=== PATIENT | female | born 1995 | race Hispanic/Latino ===

== ENCOUNTER → 2019-09-18 10:18 | Outpatient (CLI) | payer SELFPAY ==
--- NOTE | ~2019-09-18 | US_ITS ---
EXAMINATION: US OB follow up DATE: 09/18/2019 11:03 INDICATION: Routine care, second trimester TECHNIQUE: Real-time ultrasound of the pelvis was performed. The interpreting radiologist was not pre sent for the study. COMPARISON: None. FINDINGS: There is a single living fetus in vertex presentation. The placenta is anterior. card iac activity and movement are noted. heart rate is 142 beats per minute (bpm). The amniot ic fluid index is 12.8 cm which is normal. The following biometric data were obtained: Biparietal diameter (BPD): 7.7 cm; head circumference (HC): 28.9 cm; abdominal circumference (AC): 25 .3 cm; femur length (FL): 5.6 cm. These measurements are concordant. Estimated weight is 1471 g +/- 220 g, which correlates with the 80th percentile when 12/06/2019 i s used as estimated date of delivery. As single measurements, these parameters are each equal to the following estimated gestational ages w ith ranges of +/- 2 standard deviations: BPD: 31 weeks 2 days ( 28 weeks 1 days - 34 weeks 2 days). HC: 31 weeks 6 days ( 29 weeks 0 days - 34 weeks 6 days). AC: 29 weeks 4 days ( 27 weeks 2 days - 31 weeks 5 days). FL: 29 weeks 4 days ( 27 weeks 3 days - 31 weeks 4 days). estimated gestational age based solely on measurements from this exam is 30 weeks 4 days +/- 2 weeks 1 days. IMPRESSION: 1. Single living fetus in vertex presentation. 2. Normal amniotic fluid index. 3. Estimated weight is 1471 g +/- 220 g, which correlates with the 80th percentile when 0 is used as estimated date of delivery. Reviewed, dictated and finalized at location A. IMPRESSION: 1. Single living fetus in vertex presentation. 2. Normal amniotic fluid index. 3. Estimated weight is 1471 g +/- 220 g, which correlates with the 80th p ercentile when 12/06/2019 is used as estimated date of delivery.
== END ==
PROVIDERS: Visit Provider Physician Assistant
DX: Z34.93 Encounter for supervision of normal pregnancy, unspecified, third trimester (principal); Z3A.30 30 weeks gestation of pregnancy
CPT/HCPCS: 76816

== ENCOUNTER 2019-10-23 01:15 | Inpatient (IN) | payer MEDICAID, SELFPAY ==
[2019-10-23] VITALS (31 sets, daily range): BP systolic 92–115; BP diastolic 51–86; PULSE 60–135; RESP 16–18; TEMP 36.4–37; O2SAT 99; BMI 21.7
--- NOTE | 2019-10-23 01:38 | LDADM ---
This patient, Rojelio Vázquez, was admitted to Labor/Delivery/Recovery 104 on 10/23/19 at 01:38. Plans for labor, pain management and were discussed with patient. Patient/family oriented to hospital policies and general routines including ID bracelet, bed and alarms, visiting hours, pain management, procedures, bathroom and other care routines, personal items, smoking policy, room service/diet and guest tray routines, security routines, and visiting hours. Patient/Family are encouraged to report perceived risks to care and to ask questions if they do not understand what they are told or what they should do. See OBIX for further documentation.
[2019-10-23 02:07] LABS: Basophils Percent Auto 0.2 % (0.2-1.2); Eosinophils Absolute Auto 0.1 K/mm3 (0-0.3); Eosinophils Percent Auto 0.9 % (0-4.4); Hemoglobin 11.5 g/dL (12.0-15.0); Immature Granulocyte Absolute 0.11 K/mm3 (0.00-0.031); Immature Granulocyte Percent A 0.9 % (0-0.5); Lymphocytes Absolute Auto 2.92 K/mm3 (0.9-3.2); Lymphocytes Percent Auto 22.6 % (18.3-44.2); Mean Corpuscular HGB Conc 33.8 g/dl (32-36); Mean Corpuscular Hemoglobin 27.7 pg (26-34); Mean Corpuscular Volume 81.9 fl (80-100); Mean Platelet Volume 9.3 fl (7.4-10.4); Monocytes Absolute Auto 1.1 K/mm3 (0.1-0.6); Monocytes Percent Auto 8.1 % (2.6-8.5); Neutrophils Absolute Auto 8.7 K/mm3 (1.3-6.7); Neutrophils Percent Auto 67.3 % (45.5-73.1); Platelet Count Result 170 k/mm3 (150-375); Red Blood Count 4.15 M/mm3 (4.2-5.4); Red Cell Distribution Width 12.7 % (11.5-14.5); White Blood Count 12.9 K/mm3 (4.5-10.0)
[2019-10-23] MEDS: AMPICILLIN 2 GM/NS 100 ML 2 GM/100 ML BAG IVPB (02:09)
[2019-10-23] MEDS: LACTATED RINGERS 1,000 ML 125 ML IV CONT (02:09)
--- NOTE | 2019-10-23 02:12 | WPDOBADMIT ---
Obstetrics - Admit Note Admission Note: record reviewed. No pertinent additions to the history and/or any subsequent changes in the physical findings that are not consistent with the expected course of the were found. walk-in. pt receiving care with Dr. Ayala. Pt is a at 35 weeks in active labor, membranes intact. anticipate vaginal delivery Additions to the history and/or subsequent changes in the physical findings follow. None.
[2019-10-23 02:51] LABS: Hepatitis B Surface Antigen Negative (Negative)
[2019-10-23 03:00] LABS: HIV 1/2 Ab P24 Ag Result Negative (Negative)
[2019-10-23 03:51] LABS: Rubella IgG Antibody 30.9 IU/ML
[2019-10-23] MEDS: AMPICILLIN 1 GM/NS 50 ML 1 GM/50 ML BAG IVPB (06:21)
--- NOTE | 2019-10-23 07:50 | WPDOBADMIT ---
Obstetrics - Admit Note Admission Note: 24 y/o @ 35 weeks gestation who presented in active labor. She is a walk in patient. She had care with Dr Ayala however [facility] is not delivering at this time and Dr Ayala does not have priveleges here. Pt denies any medica problems or problems with this . Please see h&p. Contractions regular FHR category 1 Cervix 8cm/100/-1. AROM performed. Small amount of clear odorless fluid Declines epidural Anticipate record reviewed. No pertinent additions to the history and/or any subsequent changes in the physical findings that are not consistent with the expected course of the were found. Additions to the history and/or subsequent changes in the physical findings follow. None.
--- NOTE | 2019-10-23 07:55 | PM.IMHP ---
H&P: HPI History of Present Illness Chief complaint: contractions Narrative: Rojelio Vázquez is a 24 year old female Review of Systems Review of Systems: All systems reviewed & are unremarkable except as noted in HPI and below PMFSH Social History Social History Smoking status: Never smoker Substance use: never Gender identity (if verbalized by the patient): Female Spiritual care concerns: No Meds Home Medications and Allergies Home Medications Medication Instructions Recorded Confirmed Type PNV cmb#95-ferrous fumarate-FA 1 tablet PO DAILY 10/23/19 10/23/19 History [] Allergies Allergy/AdvReac Type Severity Reaction Status Date / Time No Known Allergies Allergy Verified 10/23/19 02:44 Vital Signs Vital Signs - 24 hr 10/23/19 01:34 10/23/19 02:11 10/23/19 02:16 Temperature 97.9 F Pulse Rate 76 79 Blood Pressure 112/67 94/64 L 10/23/19 02:31 10/23/19 03:01 10/23/19 03:31 Temperature Pulse Rate 65 67 Blood Pressure 108/69 111/69 108/66 10/23/19 04:00 10/23/19 04:01 10/23/19 04:31 Temperature 98.6 F Pulse Rate 71 83 Blood Pressure 101/69 93/55 L 10/23/19 05:02 10/23/19 05:31 10/23/19 05:59 Temperature 97.9 F Pulse Rate 76 77 Blood Pressure 93/56 L 95/63 L 10/23/19 06:01 10/23/19 06:23 10/23/19 06:31 Temperature 98.6 F Pulse Rate 95 Blood Pressure 96/79 L 106/86 Exam Const: General: no acute distress Neck: Neck: supple and no JVD Resp: Auscultation: clear to auscultation bilaterally Cardio: Rate: regular rate GI: Other: Gravid Skin: General skin exam: normal color Neuro: General: gait normal Speech: normal speech Motor exam (neuro): Normal motor muscle tone present throughout Extrem: General: normal to inspection Psych: Mental Status: mental status grossly normal H&P: Results Labs Labs: Short CBC 10/23/19 Range/Units 01:44 WBC 12.9 H (4.5-10.0) K/mm3 Hgb 11.5 L (12.0-15.0) g/dL Hct 34.0 L (37.0-47.0) % Plt Count 170 (150-375) k/mm3 Assessment and Plan Assessment and plan (1) Active labor: Status: Acute Assessment and Plan: 35weeks in spontaneous labor GBS prophylaxis Obtain records Anticipate
[2019-10-23] MEDS: OXYTOCIN 30 UNITS/NS 500 ML 30 UNITS/500 ML BAG 999 UNITS IV CONT (09:41)
--- NOTE | 2019-10-23 09:59 | P.PCNOB_ITS ---
OB - Delivery Note Procedure Delivery date: 10/23/19 events: Labor < 37 Weeks Intrapartal events: None Induction method: none Delivery monitor: external FHT and external uterine Route of delivery: Laceration description: Perineal - 1st Degree Delivery repair: vicryl Specimen: Yes Estimated blood loss (mL): 160 Anesthesia type: Epidural [place] [facility] Date of : 10/23/19 Time of : 09:37 Weeks of gestation at delivery: 35 gender: Male presentation: vertex position: Left Occiput Anterior Placenta delivery description: Spontaneous cord vessel description: 3 Vessels
[2019-10-23] MEDS: OXYTOCIN 30 UNITS/NS 500 ML 30 UNITS/500 ML BAG 125 UNITS IV CONT (10:15)
[2019-10-23 10:50] LABS: Amphetamine Screen Urine Negative (Negative); Barbiturate Screen Urine Negative (Negative); Benzodiazepines Screen Urine Negative (Negative); Cannabinoid Screen Urine Negative (Negative); Cocaine Screen Urine Negative (Negative); Methadone Screen Urine Negative (Negative); Opiate Screen Urine Negative (Negative); Phencyclidine Screen Urine Negative (Negative)
[2019-10-23 11:25] LABS: Rapid Plasma Reagin Non-Reactive (NonReactive)
[2019-10-23] MEDS: BENZOCAINE 20% AER SPR (*SP) 56 GM CAN 1 SPRAY TOPICAL (12:31)
[2019-10-23] MEDS: WITCH HAZEL 40 PADS 1 PAD TOPICAL (12:31)
--- NOTE | 2019-10-23 15:25 | PC.NURSE ---
Breast pump provided due to transfer. Instructions given on breast pump care and usage, pumping schedule, nipple care, and collection and storage of breast milk. Encouraged [id number], breast massage and manual expression to stimulate supply. Assessed patient for correct flange size, placement and draw. Patient verbalizes and demonstrates understanding of instructions.
[2019-10-24 05:43] LABS: Hematocrit 30.4 % (37.0-47.0)
--- NOTE | 2019-10-24 07:34 | P.PNOB_ITS ---
OB - PN: Subj Subjective Date/time seen: 10/24/19 07:34 Patient comments: no complaints baby status: doing well [place] feeding status: pumping and storing OB - PN: Obj Data Labs CBC & Chem 7: 10/24/19 04:51 Labs: Laboratory Results - last 24 hr 10/23/19 10/23/19 10/24/19 01:44 09:15 04:51 Hgb 10.0 L Hct 30.4 L Urine Opiates Screen Negative Urine Methadone Screen Negative Ur Barbiturates Screen Negative Ur Phencyclidine Scrn Negative Ur Amphetamine Screen Negative U Benzodiazepines Scrn Negative Urine Cocaine Screen Negative U Cannabinoids Screen Negative RPR Non-reactive OB - PN A/P Plan day: 1 Plan: routine care Time Spent With Patient Time: Total time spent is greater than 50% in coordination of care (as documented) at patient's floor/unit and/or counseling patient: Review of Systems Review of Systems: All systems reviewed & are unremarkable except as noted in HPI and below Constitutional: Constitutional: Reports as per HPI Cardiovascular: Cardiovascular: Reports as per HPI Respiratory: Respiratory: Reports as per HPI Exam 2 Const: General: comfortable
[2019-10-24 07:35] VITALS: BP 96/60; PULSE 68; RESP 18; TEMP 37.6; O2SAT 99
[2019-10-24] MEDS: MULTIVIT/MIN/PREN/FOL AC/IRON TABLET 1 TAB PO (08:45)
--- NOTE | 2019-10-24 09:00 | PC.NURSE ---
Mother continues to pump regularly without difficulties or discomfort. Reviewed engorgement/relief. Reviewed regular medications mother is taking. Information provided per Laurie. Reviewed community resources on the [employer] website and in the Mom/Baby guide. Information on outpatient services provided. Mother has no further questions at this time.
[2019-10-24] MEDS: IBUPROFEN 600 MG TABLET PO (10:25)
--- NOTE | 2019-10-24 10:29 | PC.NURSE ---
Education: Mom and Baby Guide Given to: Mother Follow-Up: Call your delivering provider's office for an appointment to be seen in: Call for appointment Mom and baby should come to the [facility] for the follow-up appointment. Appointment Date/Time: October 27, 2019 at 10:00 am What to expect at your follow-up visit: Physical Assessment Call [phone] if you are unable to keep your appointment time. Patient viewed the discharge video Mother & Baby Care, The First Two Weeks . Patient was given the opportunity and encouraged to ask questions. Patient verbalized understanding of information shared and has been given the mother/baby guide for home reference.
[2019-10-27 10:00] VITALS: BP 108/72; PULSE 71; RESP 18; TEMP 37.1
--- NOTE | 2019-11-05 10:06 | PM.OBDSVD ---
DS: Diagnosis Admitting Diagnosis Admitting Diagnosis: Encounter for supervision of normal , unspecified, third trimester Discharge Diagnosis (1) Vaginal delivery: Code(s): O80 - Encounter for full-term uncomplicated delivery Status: Acute OB - DS: Summary OB Procedures : None OB Procedures Intrapartum: Spontaneous Vag Delivery OB Procedures: : None Time Spent with Patient Time attestation: Total time spent providing and/or coordinating discharge services: Discharge Plan Discharge Attending physician on discharge: Terese Interiano Consulting providers: Carline Aguilar ; Terese Interaino Discharging Clinician: Carline Aguilar Patient Disposition: Home, Self-Care Activity: pelvic rest Diet: as tolerated Discharge Instructions: Education: Mom and Baby Guide Given to: Mother Follow-Up: Call your delivering provider's office for an appointment to be seen in: Call for appointment Mom [facility] baby [facility] for the follow-up appointment. Appointment Date/Time: October 27, 2019 at 10:00 am What to expect at your follow-up visit: Physical Assessment Call [phone] if you are unable to keep your appointment time. BREAST CARE: 1. Wear a snug supportive bra. 2. For engorgement discomfort: Breast Feeding: A. Apply warm moist washcloths B. Express milk as needed to relieve engorgement C. Wear loose clothing 3. For sore nipples: A. Identify correct latch-on B. Apply warm moist washcloths before and after nursing C. Air dry nipples after nursing D. May apply Lansinoh cream to nipples EPISIOTOMY/PERINEAL CARE: 1. Until bleeding stops, use your amarilys bottle after urinating 2. Change your pad frequently throughout the day 3. You may take sitz baths several times a day (fill your bathtub with warm water and soak for 20 minutes.) Do NOT bathe in the water 4. No tub baths until seen by your physician - You may shower ACTIVITY: 1. Rest as much as possible. 2. Do not exercise or lift anything heavier than your baby (such as laundry or other children.) 3. Avoid stairs or driving as much as possible. 4. Do not put anything into the vagina. No douching, tampons, or sexual activity until seen by physician. NOTIFY PHYSICIAN IF YOU HAVE ANY QUESTIONS OR IF ANY OF THE FOLLOWING SYMPTOMS OCCUR: 1. If your episiotomy or incision becomes red, swollen, or more painful than what you have experienced in the hospital. 2. If your vaginal bleeding becomes foul smelling. 3. If your vaginal bleeding becomes more heavy than a period or if your bleeding changes from pink to bright red. However, you may pass an occasional walnut-sized clot once or twice for the first week . 4. If you experience a sharp, shooting pain in you calves. 5. If you discover a hard, reddened area on your breast or if you experience flu-like symptoms. DIET: 1. Eat regular, well-balanced meals. 2. Drink plenty of fluids daily. If , drink to thirst. Stand Alone Forms: General Discharge Information Follow-up/Referrals: Carline Aguilar CNM [Certified Nurse [facility] [employer]] - Discharge Medications: Continued PNV cmb#95-ferrous fumarate-FA [] 28 mg iron- 800 mcg Tablet 1 tablet PO DAILY RF: 0 Date of admission: 10/23/19 01:38 Primary Care Provider: PHYSICIAN,SECURITY DISPATCHER Admitting Provider: Fani Bear Discharge Date/Time: 10/24/19 11:10 Attending physician on admission: Fani Bear
== END 2019-10-24 11:10 | disposition home or self-care (01) | DRG 560 ==
LOC: ANHLDR 01:45 → ANHOB2 13:46
PROVIDERS: Advanced Practice Midwife; Admitting Provider Obstetrics & Gynecology; Visit Provider Obstetrics & Gynecology
DX: O60.14X0 Preterm labor third trimester with preterm delivery third trimester, not applicable or unspecified (principal); Z37.0 Single live birth; Z3A.35 35 weeks gestation of pregnancy; O36.8330 Maternal care for abnormalities of the fetal heart rate or rhythm, third trimester, not applicable or unspecified; O70.0 First degree perineal laceration during delivery
CPT/HCPCS: 36415; 80307; 85014; 85018; 85025; 86592; 86703; 86762; 86850; 86900; 86901; 87340; A9270; G0432; J0290; J2590; J7120

== ENCOUNTER 2022-04-21 10:28 | Observation (INO) | payer BC, OTHER, SELFPAY ==
[2022-04-21] VITALS (23 sets, daily range): BP systolic 76–118; BP diastolic 44–68; PULSE 100–121; RESP 16; TEMP 36.8; O2SAT 97–100; BMI 23.5
--- NOTE | ~2022-04-21 | US_ITS ---
EXAMINATION: US OB follow up w BPP, US umbilical doppler DATE: 04/21/2022 12:11 INDICATION: decelerations during third trimester TECHNIQUE: Real-time pelvic ultrasound was performed. The interpreting radiologist was not present fo r the study. COMPARISON: None. FINDINGS: There is a single living fetus in vertex presentation. The placenta is anterior. heart rate is 135 beats per minute (bpm). The amniotic fluid index is 18.6 cm which is normal (normal range: 8.8 cm to 23.8 cm). Biophysical profile performed by the technologist: breathing (30 sec sustained breathing in 30 minutes): 2 out of 2 movement (3 gross body movements in 30 minutes): 2 out of 2 tone (one episode of fqrkrch-phrlhzrmt-itnyebr limb movement): 2 out of 2 Amniotic fluid pocket (2 cm): 2 out of 2 Total score: 8 out of 8 Umbilical artery pulsed Doppler demonstrates peak systolic to end-diastolic velocity ratios (S/D rati os) of 3.2, 2.1 near the fetus, 2.9 in the mid cord, and 4.3, 4.4 near the placenta (5th percentile = 2.2, 95th percentile = 3.9). The following biometric data were obtained: Biparietal diameter (BPD): 8.0 cm; head circumference (HC): 28.7 cm; abdominal circumference (AC): 28 .9 cm; femur length (FL): 6.4 cm. These measurements are concordant. Estimated weight is 2044 g +/- 306 g, which correlates with the 91st percentile when 06/23/2022 is used as estimated date of delivery. As single measurements, these parameters are each equal to the following estimated gestational ages w ith ranges of +/- 2 standard deviations: BPD: 32 weeks 1 days +/- 3 weeks 1 days. HC: 31 weeks 3 days +/- 3 weeks 0 days. AC: 33 weeks 0 days +/- 3 weeks 0 days. FL: 33 weeks 1 days +/- 3 weeks 0 days. estimated gestational age based solely on measurements from this exam is 32 weeks 3 days +/- 2 weeks 2 days. IMPRESSION: 1. Single living fetus in vertex presentation. 2. Biophysical profile 8 out of 8. 3. Normal amniotic fluid index. 4. Estimated weight is 2044 g +/- 306 g, which correlates with the 91st percentile when 022 is used as estimated date of delivery. 5. Umbilical artery SD ratio greater than two standard deviations above the mean The placenta. Reviewed, dictated and finalized at location B. IMPRESSION: 1. Single living fetus in vertex presentation. 2. Biophysical profile 8 out of 8. 3. Normal amniotic fluid index. 4. Estimated weight is 2044 g +/- 306 g, which correlates with the 91st p ercentile when 06/23/2022 is used as estimated date of delivery. 5. Umbilical artery SD ratio greater than two standard deviations above the umesh n The placenta.
--- NOTE | 2022-04-21 10:28 | OBADM ---
This patient, Rojelio Vázquez, admitted to the OB room OB Post [facility] for observation. Patient/family oriented to hospital policies and general routines including ID bracelet, bed and alarms, visiting hours, pain management, procedures, bathroom and other care routines, personal items, smoking policy, room service/diet, and visiting hours. Patient/Family are encouraged to report perceived risks to care and to ask questions if they do not understand what they are told or what they should do.
[2022-04-21] MEDS: DEXTROSE 5%/LACTATED RINGERS 1,000 ML 999 ML IV CONT (11:25)
[2022-04-21] MEDS: TERBUTALINE SULFATE 1 MG/ML VIAL 0.25 MG SUB-Q ×2 (11:28→17:05)
[2022-04-21] MEDS: NIFEdipine 10 MG CAPSULE PO (17:01)
--- NOTE | 2022-04-21 17:07 | PM.IMHP ---
H&P: HPI History of Present Illness Date/Time: 04/21/22 17:07 Chief Complaint: Contractions Narrative: The patient is a 26-year-old 2 para 1 admitted at 31 weeks with complaint of contractions. Patient has had GI virus over the past several days and felt she was dehydrated. On admission heart tones had decelerations with each contraction. She was given terbutaline x1 with resolution. She was monitored for several additional hours and has had random decelerations. The ultrasound revealed the 's 2044g and vertex. Biophysical profile was 8/8. Dopplers are elevated at 1 location only. ERIN is 18. The patient began amy again and cervix was checked and noted to be 3/70 and -2 station. It was then recommended to proceed with transfer to [facility]. She has been accepted by Loretta Bobby MD. The patient has been given Procardia 10mg, betamethasone, ampicillin. She will be given magnesium 6g bolus followed by 2grams/hour. Patient voiced understanding and agrees to the transfer. labs A-positive, rubella immune, RPR negative, hepatitis-B surface antigen negative, HPV negative. [facility] Past Medical History Medical History (Updated 04/21/22 @ 17:21 by Lucy Valdes MD) (normal spontaneous vaginal delivery) 35 weeks secondary to labor Social History Social History Smoking status: Never smoker Substance use: never Gender identity (if verbalized by the patient): Female Spiritual care concerns: No Meds Home Medications and Allergies Home Medications Medication Instructions Recorded Confirmed Type vit no.95-ferrous 1 tablet PO DAILY 10/23/19 10/23/19 History fumarate 28 mg-folic acid 800 mcg tablet () Allergies Allergy/AdvReac Type Severity Reaction Status Date / Time No Known Allergies Allergy Verified 10/23/19 02:44 Vital Signs Vital Signs - 24 hr 04/21/22 10:52 04/21/22 11:00 04/21/22 11:44 Pulse Rate 104 H 100 Blood Pressure 99/66 L 102/67 Oxygen Delivery Room Air Exam Const: General: comfortable, alert and awake Resp: Effort & Inspection: normal respiratory effort GI: GI Palp: Yes Soft to palpation and Yes Other GI palpation findings present ( gravid with fundal height of 32) Auscultation: other ( heart tones reactive with random decelerations) : Manual OB Exam: dilated 3 cm, effaced 75% and station ( vertex) -2 Assessment and Plan Assessment and plan (1) 31 weeks gestation of : Code(s): Z3A.31 - 31 weeks gestation of Status: Acute Assessment and Plan: 2044g vertex (2) labor: Code(s): O60.00 - labor without delivery, unspecified trimester Status: Acute Assessment and Plan: Will proceed with transfer to [facility]. Magnesium 6g bolus followed by 2grams/hour being hung now. Steroids given. Ampicillin given.
[2022-04-21] MEDS: BETAMETHASONE SOD PHOS/ACETATE 30 MG/5 ML VIAL 12 MG IM (17:11)
[2022-04-21] MEDS: LACTATED RINGERS 1,000 ML 75 ML IV CONT (17:26)
[2022-04-21] MEDS: MAGNESIUM SULF 6 GM/WATER150ML 6 GM/150 ML BAG IVPB (17:30)
[2022-04-21] MEDS: MAGNESIUM SULF 20GM/WATER500ML 500 ML 50 MG IV CONT (17:53)
== END 2022-04-21 18:53 | disposition short-term general hospital (02) ==
PROVIDERS: Admitting Provider Obstetrics & Gynecology Gynecology; Visit Provider Obstetrics & Gynecology Gynecology
DX: O60.03 Preterm labor without delivery, third trimester (principal); Z3A.31 31 weeks gestation of pregnancy
CPT/HCPCS: 76816; 76819; 76820; 96361; 96372; 96374; A9270; G0378; G0379; J0702; J3105; J3475; J7120; J7121

== ENCOUNTER 2022-06-09 15:57 | Inpatient (IN) | payer BC, OTHER, SELFPAY ==
[2022-06-09] VITALS (26 sets, daily range): BP systolic 88–129; BP diastolic 46–95; PULSE 70–139; TEMP 36.6–36.9; O2SAT 93–100; BMI 26.4
--- NOTE | 2022-06-09 16:42 | P.PNAN_ITS ---
Anes - Eval Pre Procedure Procedure: Labor epidural Date/Time: 06/09/22 16:42 Surgeon: Lucio Preop Diagnosis: Abd pain with contractions Pre Op Diagnosis: Induction of Labor Patient Data Age: 26 Gender: F Height: Weight: Allergies Allergy/AdvReac Type Severity Reaction Status Date / Time No Known Allergies Allergy Verified 10/23/19 02:44 Home Medications Medication Instructions Recorded Confirmed Type vit no.95-ferrous 1 tablet PO DAILY 10/23/19 10/23/19 History fumarate 28 mg-folic acid 800 mcg tablet () Patient hx anesthesia problems: none Family hx anesthesia problems: none Results Review: All pre-operative results and documents have been reviewed as part of the pre- operative evaluation. PMFSH Past Medical History Medical History (normal spontaneous vaginal delivery) 35 weeks secondary to labor Over weight and not yet delivered Social History Social History Smoking status: Never smoker Substance use: never Gender identity (if verbalized by the patient): Female Spiritual care concerns: No Exam Day of Procedure 06/09/22 16:42 Patient weight: overweight Airway: Mallampati scale class II
--- NOTE | 2022-06-09 16:56 | WPDOBADMIT ---
Obstetrics - Admit Note Admission Note: record reviewed. No pertinent additions to the history and/or any subsequent changes in the physical findings that are not consistent with the expected course of the were found. Additions to the history and/or subsequent changes in the physical findings follow. None.
--- NOTE | 2022-06-09 17:26 | PM.OBPNLAB ---
Pain Control Date/time seen: 06/09/22 17:26 Pelvic Exam Dilation (cm): 5 Effacement (%): 90 station: -1 Amniotic membrane status: Intact Contractions Monitor mode: External Contraction pattern: Irregular Status status: Category l Assessment and Plan Comments: Facilities Operator to bedside. Patient having irregular uterine contractions. As previously discussed in the office today plan for amniotomy. Previously discussed option of oxytocin and amniotomy or amniotomy alone. Patient desires to attempt to avoid oxytocin. AROM performed with return of small amount of clear fluid. tracing category 1. Anticipate vaginal . Plan, if no cervical change in 4 hours would recommend oxytocin augmentation.
[2022-06-09 17:28] LABS: Basophils Percent Auto 0.4 % (0.2-1.2); Eosinophils Absolute Auto 0.1 K/mm3 (0-0.3); Eosinophils Percent Auto 0.5 % (0-4.4); Hematocrit 34.2 % (37.0-47.0); Hemoglobin 11.6 g/dL (12.0-15.0); Immature Granulocyte Absolute 0.12 K/mm3 (0.00-0.031); Immature Granulocyte Percent A 1.1 % (0-0.5); Lymphocytes Absolute Auto 2.22 K/mm3 (0.9-3.2); Lymphocytes Percent Auto 19.5 % (18.3-44.2); Mean Corpuscular HGB Conc 33.9 g/dl (32-36); Mean Corpuscular Hemoglobin 27.5 pg (26-34); Mean Platelet Volume 9.8 fl (7.4-10.4); Monocytes Absolute Auto 0.8 K/mm3 (0.1-0.6); Monocytes Percent Auto 6.6 % (2.6-8.5); Neutrophils Absolute Auto 8.2 K/mm3 (1.3-6.7); Neutrophils Percent Auto 71.9 % (45.5-73.1); Platelet Count Result 175 k/mm3 (150-375); Red Blood Count 4.22 M/mm3 (4.2-5.4); Red Cell Distribution Width 13.4 % (11.5-14.5); White Blood Count 11.4 K/mm3 (4.5-10.0)
--- NOTE | 2022-06-09 20:34 | PM.OBPNLAB ---
Pain Control Date/time seen: 06/09/22 20:34 Pain control: tolerating well Comments: feeling occasional rectal pressure. Sitting/squatting in bed with birthing bar attached. Pelvic Exam Amniotic membrane status: Ruptured Comments: Recently checked by RN and found to be 8cm Contractions Monitor mode: External Contraction frequency: 2 (2-3) Contraction duration: 60 (60-90) Contraction pattern: Irregular Contraction intensity: Strong/Firm Status status: Category l Assessment and Plan Assessment: active labor Plan: continuous present management Comments: Tolerating labor well. Spouse present and supportive. Anticipate vaginal .
[2022-06-09 21:03] LABS: Glucose Point of Care 102 mg/dl (65-105)
[2022-06-09] MEDS: LACTATED RINGERS 1,000 ML 125 ML IV CONT (22:45)
[2022-06-09] MEDS: HYDROmorphone HCL INJ (*CRX) 1 MG/ML SYR (23:09)
[2022-06-09] MEDS: OXYTOCIN 30 UNITS/NS 500 ML 30 UNITS/500 ML BAG 999 UNITS (23:13)
[2022-06-09] MEDS: LIDOCAINE HCL 1% PF 30 ML VIAL (23:13)
[2022-06-09] MEDS: miSOPROStol 200 MCG TABLET 800 MCG (23:20)
[2022-06-09] MEDS: OXYTOCIN 30 UNITS/NS 500 ML 30 UNITS/500 ML BAG 125 UNITS (23:30)
[2022-06-10] VITALS (10 sets, daily range): BP systolic 98–189; BP diastolic 56–174; PULSE 61–165; RESP 16–20; TEMP 36.4–36.8; O2SAT 99–100
--- NOTE | 2022-06-10 00:13 | PM.OBPRVD ---
OB - Delivery Note Procedure Delivery date: 06/09/22 Procedure: Events: Other ( labor. ) Induction method: AROM Delivery monitor: External FHT and External Uterine Route of delivery: Episiotomy description: None Laceration Description: Perineal - 1st Degree Delivery repair: vicryl Specimen: Yes Quantitative Blood Loss (ml): 450 Anesthesia type: Local Disposition: Floor Narrative: Patient progressed to complete and began spontaneously pushing with contractions. She brought the head to a crown and delivered it in a controlled fashion. There was good restitution. The anterior and posterior shoulders then delivered easily followed by the remainder of the infant. The was placed on the maternal abdomen in care assumed by the nursery team. After 1 minute of life the cord was doubly clamped and cut. Cord blood and cord gases were obtained. A first-degree vaginal laceration was repaired in the usual fashion after local anesthetic was injected. All delivery counts were correct. [place] Baby Date of : 06/09/22 Time of : 22:33 Weeks of gestation at delivery: 38 gender: Male Weight (pounds): 7 Weight (ounces): 5 presentation: vertex position: Right Occiput Anterior Placenta delivery description: Spontaneous Cord Vessel Description: 3 Vessels score one minute: 8 score five minutes: 9
--- NOTE | 2022-06-10 00:20 | PM.DS ---
DS: Admitting Diagnosis Discharge Date 06/11/22 Admitting Diagnosis IUP at 38 weeks DS: Discharge Diagnosis Discharge Diagnosis (1) Vaginal delivery: Code(s): O80 - Encounter for full-term uncomplicated delivery Status: Acute (2) Mother currently breast-feeding: Code(s): Z39.1 - Encounter for care and examination of lactating mother Status: Acute DS: Summary Hospital Course Reason for hospitalization: Childbirth Hospital Course: Uncomplicated Status at Discharge Functional status at discharge: independent ambulation Overall status at discharge: patient is progressing back to baseline Time Spent with Patient Time attestation: Total time spent providing and/or coordinating discharge services: DS: Data Data Completed and Pending Labs on day of discharge: Labs from last 24 hours 06/09/22 06/09/22 06/09/22 20:57 16:51 16:51 WBC RBC Hgb Hct MCV MCH MCHC RDW Plt Count MPV Immature Gran % (Auto) Neut % (Auto) Lymph % (Auto) [place] % (Auto) Eos % (Auto) Baso % (Auto) Lymph # (Auto) [place] # (Auto) Eos # (Auto) Baso # (Auto) Abs Immat Gran (auto) Absolute Neuts (auto) Absolute Nucleated RBC Nucleated RBC % POC Capillary Glucose 102 RPR Pending Blood Type A Positive Antibody Screen Negative 06/09/22 16:51 WBC 11.4 H RBC 4.22 Hgb 11.6 L Hct 34.2 L MCV 81.0 MCH 27.5 MCHC 33.9 RDW 13.4 Plt Count 175 MPV 9.8 Immature Gran % (Auto) 1.1 H Neut % (Auto) 71.9 Lymph % (Auto) 19.5 [place] % (Auto) 6.6 Eos % (Auto) 0.5 Baso % (Auto) 0.4 Lymph # (Auto) 2.22 [place] # (Auto) 0.8 H Eos # (Auto) 0.1 Baso # (Auto) 0.0 Abs Immat Gran (auto) 0.12 H Absolute Neuts (auto) 8.2 H Absolute Nucleated RBC 0.0 Nucleated RBC % 0.0 POC Capillary Glucose RPR Blood Type Antibody Screen Discharge Plan Discharge Attending physician on discharge: Lucy Valdes Consulting providers: Nicole Humphreys ; Sekou Garcia Discharging Clinician: Lucy Valdes Anticipated Discharge Date/Time: 06/11/22 00:21 Patient Disposition: Home, Self-Care Activity: may shower Diet: as tolerated and regular Discharge Instructions: Education: Mom and Baby Guide Given to: Mother Follow-Up: Call your delivering provider's office for an appointment to be seen in: 6 Weeks Mom and baby should come to the [facility] for the follow-up appointment. Appointment Date/Time: June 13, 2022 at 8:00 am What to expect at your follow-up visit: Blood Pressure Check Physical Assessment Call [phone] if you are unable to keep your appointment time. BREAST CARE: * Wear a snug supportive bra. * For engorgement discomfort: Breast Feeding: * Apply warm moist washcloths * Express milk as needed to relieve engorgement * Wear loose clothing * For sore nipples: * Identify correct latch-on * Apply warm moist washcloths before and after nursing * Air dry nipples after nursing * May apply Lansinoh cream to nipples PERINEAL CARE: * Until bleeding stops, use your amarilys bottle after urinating * Change your pad frequently throughout the day * You may take sitz baths several times a day (fill your bathtub with warm water and soak for 20 minutes.) Do NOT bathe in the water * No tub baths until seen by your physician - You may shower ACTIVITY: * Rest as much as possible. * Do not exercise or lift anything heavier than your baby (such as laundry or other children.) * Avoid stairs or driving as much as possible. * Do not put anything into the vagina. No douching, tampons, or sexual activity until seen by physician. NOTIFY PHYSICIAN IF YOU HAVE ANY QUESTIONS OR IF ANY OF THE FOLLOWING SYMPTOMS OCCUR: * If your vaginal bleeding becomes foul smelling. * If your vaginal bleeding becomes more heavy than a amarilys
[2022-06-10] MEDS: IBUPROFEN 600 MG TABLET PO ×2 (08:28→16:11)
[2022-06-10] MEDS: MULTIVIT/MIN/PREN/FOL AC/IRON TABLET 1 TAB PO (08:29)
--- NOTE | 2022-06-10 11:18 | PM.OBPNVD ---
OB - PN: Subj Subjective Date/time seen: 06/10/22 11:18 Patient comments: no complaints and pain well controlled baby status: doing well and nursing well [place] feeding status: exclusively breast feeding Narrative: Jerod is resting in bed, her infant. She reports no issues with po intake or urination. Lochia WNL with no large clots. OB - PN: Obj Data Labs 06/09/22 16:51 Labs: Laboratory Results - last 24 hr 06/09/22 06/09/22 06/09/22 16:51 16:51 20:57 WBC 11.4 H RBC 4.22 Hgb 11.6 L Hct 34.2 L MCV 81.0 MCH 27.5 MCHC 33.9 RDW 13.4 Plt Count 175 MPV 9.8 Immature Gran % (Auto) 1.1 H Neut % (Auto) 71.9 Lymph % (Auto) 19.5 [place] % (Auto) 6.6 Eos % (Auto) 0.5 Baso % (Auto) 0.4 Lymph # (Auto) 2.22 [place] # (Auto) 0.8 H Eos # (Auto) 0.1 Baso # (Auto) 0.0 Abs Immat Gran (auto) 0.12 H Absolute Neuts (auto) 8.2 H Absolute Nucleated RBC 0.0 Nucleated RBC % 0.0 POC Capillary Glucose 102 Blood Type A Positive Antibody Screen Negative OB - PN A/P Plan day: 1 Plan: routine care Time Spent With Patient Time: Total time spent is greater than 50% in coordination of care (as documented) at patient's floor/unit and/or counseling patient: Review of Systems Review of Systems: All systems reviewed & are unremarkable except as noted in HPI and below Exam Narrative: Alert and oriented. Mood is pleasant and cooperative. Urinating without difficulty. Denies passing any large clots. Perineum with minimal edema. Fundus firm and below umbilicus. Const: General: cooperative, healthy appearing, no acute distress and alert Orientation/consciousness: patient oriented x3 Limitations: no limitations Resp: Effort & Inspection: normal respiratory effort Auscultation: clear to auscultation bilaterally Cardio: Rate: regular rate GI: Inspection: normal to inspection Neuro: General: patient oriented x3 Extrem: General: normal to inspection Psych: Appearance: grossly normal Mental Status: mental status grossly normal Affect: normal affect Thought process: Normal thought process present
--- NOTE | 2022-06-10 14:50 | OBPPTRN ---
Patient transferred to post room #285 via wheelchair. Oriented to unit, room, information board, rooming in, admission packet and security measures. Patient verbalizes understanding.
[2022-06-10] MEDS: DOCUSATE SODIUM 100 MG CAPSULE PO (16:11)
[2022-06-10] MEDS: ACETAMINOPHEN 325 MG TABLET 650 MG PO (20:29)
[2022-06-11 05:29] LABS: Hematocrit 29.2 % (37.0-47.0); Hemoglobin 9.9 g/dL (12.0-15.0)
[2022-06-11 08:45] VITALS: BP 101/57; PULSE 72; RESP 16; TEMP 36.8; O2SAT 98
[2022-06-11] MEDS: POLYSACCHARIDE IRON COMPLEX 150 MG CAPSULE PO (08:46)
[2022-06-11] MEDS: IBUPROFEN 600 MG TABLET PO (08:47)
[2022-06-11] MEDS: MULTIVIT/MIN/PREN/FOL AC/IRON TABLET 1 TAB PO (08:47)
[2022-06-11] MEDS: DOCUSATE SODIUM 100 MG CAPSULE PO (08:47)
--- NOTE | 2022-06-11 09:26 | P.PNOB_ITS ---
OB - PN: Subj Subjective Date/time seen: 06/11/22 09:26 Patient comments: no complaints and pain well controlled baby status: doing well and nursing well OB - PN: Obj Data Labs 06/11/22 04:30 Labs: Laboratory Results - last 24 hr 06/11/22 04:30 Hgb 9.9 L Hct 29.2 L OB - PN A/P Plan day: 2 Plan: routine care, discharge home, follow up 6 weeks and other (p lans condoms until vasectomy) Time Spent With Patient Time: Total time spent is greater than 50% in coordination of care (as documented) at patient's floor/unit and/or counseling patient: Exam : Bimanual exam- vagina & uterus: other (Uterus firm, nt @U)
[2022-06-12 10:01] LABS: Rapid Plasma Reagin Non-Reactive (NonReactive)
== END 2022-06-11 15:45 | disposition home or self-care (01) | DRG 807 ==
LOC: ANHLDR 06-10 00:23 → ANHOBPP 06-10 07:46 → ANHOB2 06-10 14:52
PROVIDERS: Admitting Provider Obstetrics & Gynecology Gynecology; Referring Provider Advanced Practice Midwife; Visit Provider Obstetrics & Gynecology Gynecology
DX: O60.23X0 Term delivery with preterm labor, third trimester, not applicable or unspecified (principal); Z37.0 Single live birth; Z3A.38 38 weeks gestation of pregnancy; O70.0 First degree perineal laceration during delivery
CPT/HCPCS: 36415; 82948; 85014; 85018; 85025; 86592; 86850; 86900; 86901; 88307; A9270; J1170; J2590; J7120

== ENCOUNTER 2024-01-10 09:10 | Outpatient (CLI) | payer BC, SELFPAY ==
--- NOTE | ~2024-01-10 | US_ITS ---
EXAMINATION: US soft tissue pelvic DATE: 01/10/2024 09:27 INDICATION: Abscess of vulva. TECHNIQUE: Multiple transabdominal sonographic images of the pelvis were obtained. COMPARISON: None. FINDINGS: In the left inguinal region, there is a normal subcutaneous lymph node in the patient's area of [place] rn. IMPRESSION: 1. Normal left inguinal lymph node in the patient's area concern. Reviewed, dictated and finalized at location E.
== END 2024-01-10 09:11 ==
LOC: GOSHIMG 09:11
PROVIDERS: PCP Obstetrics & Gynecology Gynecology; Visit Provider Obstetrics & Gynecology Gynecology
DX: N76.4 Abscess of vulva (principal)
CPT/HCPCS: 76857